=== PATIENT | male | born 1955 | race Caucasian/White ===

== ENCOUNTER 2017-08-21 12:44 | Day surgery (SDC) | payer OTHER ==
[2017-08-21] MEDS ORDERED: PROPOFOL 10 MG/ML VIAL IV ONE (12:45)
[2017-08-21] MEDS ORDERED: LIDOCAINE 2% MDV (20MG/ML) 20ML VIAL IV ONE (12:45)
--- NOTE | 2017-08-22 13:50 | Operative Note ---
DATE OF SURGERY: 08/21/2017 OPERATION: COLONOSCOPY to the cecum. INDICATION: Strong family history of colon cancer in both his mother and father. The patient also with a previous history of adenomatous polyps. He returns at this time for surveillance and high risk for surveillance. It has been 5 years since his last exam. ANESTHESIA: Intravenous sedation was administered by the department of anesthesiology and included Diprivan titrated to effect. PROCEDURE: Following informed consent from this alert individual including a discussion of the risks and benefits of the procedure and an opportunity for the patient to ask questions, the patient was in the left lateral decubitus position. A digital rectal examination was performed. No abnormalities were noted. Following this, the Olympus [id number] video colonoscope was inserted into the rectum without resistance. The rectal mucosa had a normal appearance with normal folds and distensibility. The colonoscope was advanced up through the bowel to the level of the cecum without difficulty. The colon preparation was good. The cecum was well defined by noting the appendiceal orifice and ileocecal valve. Retroflexion in the cecum failed to demonstrate any abnormalities. From the base of the cecum, the colonoscope was then withdrawn. Again no abnormalities were noted upon withdrawal until the rectum was reached. Retroflexion within the rectum revealed small internal hemorrhoids. The endoscope was straightened and removed. The patient tolerated the procedure well and was returned to the recovery area in stable condition. IMPRESSION: Unremarkable colonoscopy to the cecum with the exception of small hemorrhoids internally. RECOMMENDATIONS: The patient was advised to have recheck colonoscopy in 5 years' time or sooner should problems arise. Followup will be with Dr. Chavez. As always, thank you for allowing me to participate in the care of your patient. CC: Dawson FLORES
== END 2017-08-21 13:56 | disposition home or self-care (01) ==
LOC: HOP 12:44
PROVIDERS: ATTEND Internal Medicine Gastroenterology
DX: Z12.11 Encounter for screening for malignant neoplasm of colon (principal); Z86.010 Personal history of colon polyps; Z80.0 Family history of malignant neoplasm of digestive organs; E11.9 Type 2 diabetes mellitus without complications; Z79.84 Long term (current) use of oral hypoglycemic drugs
CPT/HCPCS: 00812; G0105